=== PATIENT | male | born 1980 | race Caucasian/White ===

== ENCOUNTER 2017-09-25 19:16 | Inpatient (IN) | payer MEDICAID ==
[~2017-09-25] VITALS: Ht 167.6 cm; Wt 59.9 kg
[2017-09-25 19:18] VITALS: BP 124/79
--- NOTE | 2017-09-25 19:23 | NUR ---
PT TAKEN TO BED 11
--- NOTE | 2017-09-25 19:24 | NUR ---
37/M CAME IN ED, C/O 11/04 RLQ PAIN, NONRADIATING, X2 DAYS. PT REPORTS SLIGHT NAUSEA. PT REPORTS FEELING CONSTIPATED, VERY LITTLE LBM YESTERDAY. PT DENIES V/D OR DYSURIA, DENIES ANY FEVER, CP, SOB, OR COUGH AT THIS TIME; PATIENT POSITIONED FOR COMFORT; HOB ELEVATED; BEDRAILS UP X2; BED DOWN.
--- NOTE | 2017-09-25 20:55 | NUR ---
Patient being evaluated by Dr. Orozco at bedside.
[2017-09-25 21:11] LABS: BASOPHILS # (AUTO) 0.1 K/uL (0.00-0.22); BASOPHILS % (AUTO) 0.6 % (0.0-2.0); EOSINOPHILS # (AUTO) 0.7 K/uL (0-0.4); EOSINOPHILS % (AUTO) 6.6 % (0.0-4.0); HEMATOCRIT 42.6 % (36-52); HEMOGLOBIN 14.8 g/dL (12.0-18.0); MEAN CORPUSCULAR HEMOGLOBIN 32 pg (27-31); MEAN CORPUSCULAR HGB CONC 35 g/dL (33-37); MEAN CORPUSCULAR VOLUME 91.9 fL (80-94); MONOCYTES # (AUTO) 0.7 K/uL (0.8-1.0); MONOCYTES % (AUTO) 6.2 % (1.7-9.3); NEUTROPHILS # (AUTO) 6.6 K/uL (1.8-7.7); NEUTROPHILS % (AUTO) 59.6 % (42.2-75.2); PLATELET COUNT (AUTO) 193 K/uL (140-450); RED BLOOD CELL COUNT(AUTO) 4.64 MIL/uL (4.20-6.10); RED CELL DISTRIBUTION WIDTH 12.3 % (11.6-13.7)
[2017-09-25 21:13] LABS: APPEARANCE,URINE CLEAR (CLEAR); BILIRUBIN,URINE NEGATIVE (NEGATIVE); BLOOD, URINE NEGATIVE (NEGATIVE); COLOR,URINE YELLOW (YELLOW); LEUKOCYTE ESTERASE ,URINE NEGATIVE (NEGATIVE); NITRITE, URINE NEGATIVE (NEGATIVE); UGLUCOSE NEGATIVE (NEGATIVE)
--- NOTE | 2017-09-25 21:15 | NUR ---
PT TAKEN TO CT
[2017-09-25 21:19] LABS: ANION GAP 10.2 (8-16); CARBON DIOXIDE 29.2 mmol/L (21-32); POTASSIUM 4.4 mmol/L (3.5-5.1)
--- NOTE | 2017-09-25 21:24 | NUR ---
PT RETURN FROM CT
[2017-09-25 21:26] LABS: ALBUMIN 3.9 g/dL (3.4-5.0); TOTAL BILIRUBIN 0.6 mg/dL (0.0-1.0)
--- NOTE | 2017-09-25 21:28 | NUR ---
PT RESTING COMFORTABLY IN BED, PT REPORTS SAME PAIN 8/10 AT THIS TIME. VSS. ALL NEEDS MET AT THIS TIME.
[2017-09-25] MEDS ORDERED: LORazepam 2 MG/ML VIAL IM/IVP PRN (23:30)
[2017-09-25] MEDS ORDERED: DOCUSATE SODIUM 100 MG GELCAP PO PRN (23:30)
[2017-09-25] MEDS ORDERED: ZOLPIDEM 5 MG TAB PO PRN (23:30)
[2017-09-25] MEDS ORDERED: ACETAMINOPHEN 325 MG TAB PO PRN (23:30)
[2017-09-25] MEDS ORDERED: ceFAZolin 1,000 MG VIAL ONE (23:33)
[2017-09-25] MEDS: NACL 0.9% 1,000 ML IV SCH (23:39)
--- NOTE | 2017-09-25 23:40 | NUR ---
Dr. Hollis evaluating patient at bedside.
[2017-09-25 23:52] LABS: PROTHROMBIN TIME 11.2 secs (10.8-13.4)
[2017-09-25 23:52] LABS: BARBITURATE, URINE NEG. ng/ml (NEG <=200); BENZODIAZEPINE, URINE NEG. ng/mL (NEG <=200); CANNABINOID, URINE NEG. ng/mL (NEG <=50); COCAINE, URINE NEG. ng/mL (NEG <=300); OPIATE, URINE NEG. ng/mL (NEG <=2000); PHENCYCLIDINE SCREEN,URINE NEG. ng/mL (NEG <=25)
--- NOTE | 2017-09-26 00:03 | NUR ---
Patient will be admitted to care of DR. WORKMAN. Admited to TELE. Will go to room 119B. Belongings list completed. Report to [facility] AT BEDSIDE.
[2017-09-26 00:04] LABS: CHOL/HDL RATIO 3.7 (1-4.5); MAGNESIUM 1.8 mg/dL (1.8-2.4); PHOSPHORUS 3.6 mg/dL (2.5-4.9); THYROID STIMULATING HORMONE 1.85 uIU/mL (0.34-3.74)
--- NOTE | 2017-09-26 00:10 | NUR ---
ADMITTED THIS 37 YEAR OLD MALE FROM ER PER MICHELLE WITH CC OF RLQ ABDOMINAL PAIN, N/V AND CONSTIPATION, AMBULATED TO BED WITH STEADY GAIT, ASSESSMENT DONE, SPEAKS UZBEK AND SOME CHILEAN, VITAL SIGNS STABLE, PAIN 8/10 AT THIS TIME, WILL MEDICATE PRN, INSTRUCTED NPO EXCEPT MEDS, ORIENTED TO ROOM AND CALL LIGHT, PT INQUIRING WHEN THE SURGERY WILL BE DONE, MADE AWARE THAT SURGICAL CONSULT WAS ORDERED SO TO WAIT FOR THE DOCTOR TO SEE HIM TODAY, VERBALIZED UNDERSTANDING, CALL LIGHT WITHIN REACH.
[2017-09-26 00:20] VITALS: BP 117/67
[2017-09-26] MEDS: HYDROcodone/APAP 5/325 MG 1 TAB TAB PO PRN (00:27)
[2017-09-26] MEDS: metroNIDAZOLE 500 MG/NS PREMIX 100 ML IV SCH ×3 (00:59→16:15)
--- NOTE | 2017-09-26 03:38 | NUR ---
PT SLEEPING, EASILY AROUSABLE, VITAL SIGNS TAKEN, BP ON THE LOW SIDE BUT STABLE, SB ON TELE, DENIES PAIN AT THIS TIME, NO SOB NOTED, IVF INFUSING WELL, MAINTAINED ON NPO EXCEPT MEDS, MONITORED CLOSELY.
[2017-09-26 04:00] VITALS: BP 92/47
--- NOTE | 2017-09-26 06:17 | NUR ---
PT SLEEPING, NO SIGNS OF DISTRESS, NO SIGNS OF PAIN, IVF INFUSING WELL, MAINTAINED ON NPO, AWAITING SURGICAL CONSULT WITH DR GUILLORY, MONITORED CLOSELY.
[2017-09-26 06:48] LABS: BASOPHILS % (AUTO) 0.4 % (0.0-2.0); EOSINOPHILS # (AUTO) 0.5 K/uL (0-0.4); EOSINOPHILS % (AUTO) 6.5 % (0.0-4.0); LYMPHOCYTES # (AUTO) 2.6 K/uL (2.0-11.5); LYMPHOCYTES % (AUTO) 33.9 % (20.5-51.1); MEAN CORPUSCULAR HEMOGLOBIN 32 pg (27-31); MEAN CORPUSCULAR HGB CONC 35 g/dL (33-37); MEAN CORPUSCULAR VOLUME 92.2 fL (80-94); MONOCYTES # (AUTO) 0.6 K/uL (0.8-1.0); MONOCYTES % (AUTO) 7.6 % (1.7-9.3); NEUTROPHILS % (AUTO) 51.6 % (42.2-75.2); PLATELET COUNT (AUTO) 185 K/uL (140-450); RED BLOOD CELL COUNT(AUTO) 4.33 MIL/uL (4.20-6.10); RED CELL DISTRIBUTION WIDTH 12.7 % (11.6-13.7); WHITE BLOOD COUNT (AUTO) 7.7 K/uL (4.8-10.8)
--- NOTE | 2017-09-26 07:15 | NUR ---
PT AWAKE USING HIS CELLPHONE, NO SIGNS OF DISTRESS, REPORT GIVEN TO DILCIA LARSON FOR CONTINUITY OF CARE.
--- NOTE | 2017-09-26 07:20 | NUR ---
RECEIVED REPORT FROM [employer] BROADCASTING [employer] RN. PATIENT IS RESTING IN BED, WATCHING TV. DENIES PAIN. NO OTHER SIGNS OF DISTRESS. SKIN IS INTACT. LUNGS CTA IN ALL [place]. HEART RHYTHM IS REGULAR. PATIENT IS AMBULATORY. IV SITE IS PATENT AND ASYMPTOMATIC, RUNNING IVF PER MD ORDERS. DISCUSSED PLAN OF CARE WITH PATIENT. PATIENT VERBALIZED UNDERSTANDING. ALL SAFETY MEASURES ARE IN PLACE. WILL CONTINUE TO MONITOR.
[2017-09-26 07:23] LABS: ANION GAP 10.1 (8-16); POTASSIUM 4.1 mmol/L (3.5-5.1)
[2017-09-26 07:33] LABS: PHOSPHORUS 3.3 mg/dL (2.5-4.9)
[2017-09-26 08:00] VITALS: BP 102/64
[2017-09-26] MEDS: NACL 0.9% 1,000 ML IV SCH (09:19)
[2017-09-26] MEDS: LACTOBACILLUS RHAMNOSUS GG 1 EACH CAP PO SCH (09:19)
--- NOTE | 2017-09-26 09:28 | NUR ---
PATIENT HAS BEEN SCREENED AND CATEGORIZED MODERATE NUTRITION RISK. PATIENT WILL BE SEEN WITHIN 3-5 DAYS OF ADMISSION. 09/28/17 09/30/[address]
--- NOTE | 2017-09-26 10:00 | NUR ---
DR. BLANCO INSTRUCTED RN TO HOLD K DUR TABLETS AND ADMINISTER IV POTASSIUM CHLORIDE ONLY.
--- NOTE | 2017-09-26 10:15 | NUR ---
PATIENT IN STABLE CONDITION, READY TO GO TO OR FOR PROCEDURE. SURGICAL CONSENT IS SIGNED. PATIENT MADE AWARE THAT PROCEDURE WILL BE LAPAROSCOPIC APPENDECTOMY WITH POSSIBLE OPEN APPENDECTOMY. PATIENT VERBALIZES UNDERSTANDING OF PROCEDURE, WELL RISKS AND BENEFITS. WILL CONTINUE TO MONITOR.
[2017-09-26] MEDS ORDERED: BUPIVACAINE-MPF 0.5% 30 ML VIAL INJ ONE (10:44)
--- NOTE | 2017-09-26 10:45 | NUR ---
OR NURSES AT BEDSIDE READY TO TAKE PATIENT TO OR FOR S/P LAP APPENDECTOMY OR OPEN APPENDECTOMY. WILL CONTINUE TO MONITOR.
[2017-09-26] MEDS ORDERED: fentaNYL 0.05 MG/ML VIAL ONE (10:57)
[2017-09-26] MEDS ORDERED: MEPERIDINE 50 MG/ML SYR ONE (10:57)
[2017-09-26] MEDS ORDERED: MIDAZOLAM 2 MG/2 ML VIAL ONE (10:57)
[2017-09-26] MEDS ORDERED: DEXAMETHASONE 4 MG/ML VIAL IVP ONE (11:25)
[2017-09-26] MEDS ORDERED: KETOROLAC 30 MG/ML VIAL IVP ONE (11:25)
[2017-09-26] MEDS ORDERED: PROPOFOL 200 MG/20 ML VIAL IV ONE (11:25)
[2017-09-26] MEDS ORDERED: ONDANSETRON 4 MG/2 ML VIAL IVP ONE (11:25)
[2017-09-26] MEDS ORDERED: SUCCINYLCHOLINE CHLORIDE 200 MG/10 ML VIAL IV ONE (11:25)
[2017-09-26] MEDS ORDERED: GLYCOPYRROLATE 0.2 MG/ML VIAL IV ONE (11:25)
[2017-09-26] MEDS ORDERED: SEVOFLURANE 250 ML BTL INH ONE (11:25)
[2017-09-26] MEDS ORDERED: ROCURONIUM 50 MG/5 ML VIAL IV ONE (11:25)
[2017-09-26] MEDS ORDERED: PHENYLEPHRINE 10 MG/ML VIAL IV ONE (11:25)
[2017-09-26] MEDS ORDERED: LACTATED RINGERS 1,000 ML IV SCH (11:57)
[2017-09-26] MEDS ORDERED: MEPERIDINE 25 MG/ML SYR IVP PRN (12:00)
[2017-09-26] MEDS ORDERED: ONDANSETRON 4 MG/2 ML VIAL IVP PRN (12:00)
[2017-09-26] MEDS ORDERED: diphenhydrAMINE 50 MG/ML VIAL IVP PRN (12:00)
[2017-09-26] MEDS: HYDROmorphone 1 MG/ML AMP IVP PRN ×2 (13:15→13:25)
[2017-09-26] MEDS ORDERED: HYDROmorphone PFS 2 MG/ML SYR ONE (13:16)
[2017-09-26 13:45] VITALS: BP 105/57
--- NOTE | 2017-09-26 13:45 | NUR ---
RECEIVED PATIENT BACK FROM OR. PATIENT IS IN STABLE CONDITION. STATES THAT PAIN IS TOLERABLE AT THIS TIME. WILL CONTINUE TO MONITOR.
[2017-09-26] MEDS: DEXT 5% / NACL 0.45% 1,000 ML IV SCH ×2 (13:50→22:30)
[2017-09-26 16:00] VITALS: BP 104/56
--- NOTE | 2017-09-26 16:15 | NUR ---
SCHEDULED ANTIBIOTIC ADMINISTERED AT THIS TIME. PATIENT IS SLEEPING IN BED, AROUSABLE BY VOICE. STATES THAT PAIN IS TOLERABLE AT THIS TIME. DENIES NAUSEA AND VOMITING. VITAL SIGNS ARE STABLE. WILL CONTINUE TO MONITOR.
[2017-09-26] MEDS: MORPHINE SULFATE 2 MG/ML SYR IVP PRN ×2 (17:16→21:55)
[2017-09-26] MEDS: ONDANSETRON 4 MG/2 ML VIAL IM/IVP PRN (18:16)
--- NOTE | 2017-09-26 18:16 | NUR ---
PATIENT HAD ONE EPISODE OF SMALL AMOUNT OF VOMITUS. ZOFRAN IVP GIVEN AT THIS TIME.
--- NOTE | 2017-09-26 18:26 | NUR ---
PATIENT HAD ONE EPISODE OF SMALL VOMIT WHEN EATING A LITTLE BIT OF DINNER. ZOFRAN GIVEN PER MD ORDERS. SAFETY MEASURES IN PLACE, CALL LIGHT WITHIN REACH. WILL CONTINUE TO MONITOR. Addendum: 09/26/17 at 1857 by Ronny Crowley RN PLEASE DISREGARD NOTE. DUPLICATE FROM EARLIER NOTE FROM DAVE.
--- NOTE | 2017-09-26 19:16 | NUR ---
PATIENT NO LONGER COMPLAINS OF NAUSEA AFTER ZOFRAN GIVEN. NO FURTHER EPISODES OF VOMITING. WILL CONTINUE TO MONITOR.
--- NOTE | 2017-09-26 19:20 | NUR ---
ENDORSED PLAN OF CARE TO ALLIED HEALTH INSTRUCTOR RN. PATIENT IS IN STABLE CONDITION.
--- NOTE | 2017-09-26 19:25 | NUR ---
RECEIVED REPORT FROM [facility] NURSE LARSON AT BEDSIDE FOR CONTINUITY OF CARE. PT AAOX4 UZBEK SPEAKING. PT HAS NO SOB NO S/S OF DISTRESS ON RA. IV NOTED LFA 18G D5 0.45% NS RUNNING 100 ML/HR. PT IS POST OP LAP API. DIET CLEAR LIQUID. BED LOWERED. CALL LIGHT WITHIN REACH WILL CONTINUE TO MONITOR.
[2017-09-26 20:00] VITALS: BP 107/59
[2017-09-26] MEDS: SIMETHICONE 80 MG TAB.CHEW PO PRN (21:55)
--- NOTE | 2017-09-26 22:00 | NUR ---
GAVE PT MORPHINE 1MG. EDUCATED ON MAYBE TRYING A NORCO NEXXT TIME. ALSO GOT ABD BINDER PER PT REQUEST. GAVE ANTI GAS BLOATING MED. WILL CONTINUE TO MONITOR.
--- NOTE | 2017-09-27 01:00 | NUR ---
PT ABLE TO URINATE, AFTER SURGERY WILL CONTINUE TO MONITOR.
[2017-09-27] MEDS: metroNIDAZOLE 500 MG/NS PREMIX 100 ML IV SCH ×3 (01:25→17:11)
[2017-09-27] MEDS: HYDROcodone/APAP 5/325 MG 1 TAB TAB PO PRN ×4 (01:33→21:02)
[2017-09-27 06:22] LABS: T4 (THYROXINE) 6.9 ug/dL (4.5-12.0)
[2017-09-27 06:44] LABS: BASOPHILS % (AUTO) 0.1 % (0.0-2.0); EOSINOPHILS % (AUTO) 0.1 % (0.0-4.0); HEMATOCRIT 37.1 % (36-52); HEMOGLOBIN 12.8 g/dL (12.0-18.0); LYMPHOCYTES # (AUTO) 1.9 K/uL (2.0-11.5); LYMPHOCYTES % (AUTO) 18.4 % (20.5-51.1); MEAN CORPUSCULAR HEMOGLOBIN 32 pg (27-31); MEAN CORPUSCULAR HGB CONC 35 g/dL (33-37); MEAN CORPUSCULAR VOLUME 92.5 fL (80-94); MONOCYTES # (AUTO) 0.8 K/uL (0.8-1.0); MONOCYTES % (AUTO) 7.9 % (1.7-9.3); NEUTROPHILS # (AUTO) 7.6 K/uL (1.8-7.7); NEUTROPHILS % (AUTO) 73.5 % (42.2-75.2); PLATELET COUNT (AUTO) 192 K/uL (140-450); RED BLOOD CELL COUNT(AUTO) 4.01 MIL/uL (4.20-6.10); RED CELL DISTRIBUTION WIDTH 12.4 % (11.6-13.7); WHITE BLOOD COUNT (AUTO) 10.3 K/uL (4.8-10.8)
--- NOTE | 2017-09-27 07:07 | NUR ---
PT SLEEPING NO SOB NO S/S OF DISTRESS. WILL CONTINUE TO MONITOR.
[2017-09-27 07:09] LABS: ANION GAP 9.9 (8-16); POTASSIUM 3.9 mmol/L (3.5-5.1)
--- NOTE | 2017-09-27 07:30 | NUR ---
ENDORSED REPORT TO DAYSHIFT NURSE AT BEDSIDE FOR CONTINUITY OF CARE.
[2017-09-27 08:00] VITALS: BP 107/61
[2017-09-27] MEDS: DEXT 5% / NACL 0.45% 1,000 ML IV SCH ×2 (08:30→17:17)
[2017-09-27] MEDS: LACTOBACILLUS RHAMNOSUS GG 1 EACH CAP PO SCH (08:51)
--- NOTE | 2017-09-27 10:10 | NUR ---
PT ASSISTED TO RESTROOM. ASKED IF WANNA USE URINAL, PT PREFERS THE RESTROOM. PT TOLERATED WELL. ADMINISTERED ROCEPHIN ORDERED, FLAGYL WAS INFUSING BEFORE. PT STATES PAIN LEVEL IS TOLERABLE, 5/10. BED AT LOW POSITION. ASKED PT TO USEE CALL BUTTON IF NEEDS ANT HELP. VERBALIZED UNDERSTANDING.WILL CONTINUE TO MONITOR PT.
[2017-09-27] MEDS: MORPHINE SULFATE 2 MG/ML SYR IVP PRN (10:55)
--- NOTE | 2017-09-27 13:00 | NUR ---
CHECKED ON PT. PT WITH FAMILY MEMBER, STATES PAIN AT THE TOLERABLE LEVEL. ALL THE SAFETY MEASURE IN PLACE. WILL CONTINUE TO MONITOR PT.
--- NOTE | 2017-09-27 14:20 | NUR ---
INSTRUCTED PT TO USE THE INCENTIVE SPIROMETER. DEMONSTRATED HOW TO PERFORM IT. PT DID RETURN DEMONSTRATION. INSTRUCTED TO TAKE DEEP BREATHE IN AND BLOW SLOWLY 10 X EVERY 10 MIN. VERBALIZED UNDERSTANDING OF TEACHING. WILL CONTINUE TO MONITOR PT.
--- NOTE | 2017-09-27 15:25 | NUR ---
CHECKED ON PT. LYING ON BED, DOING IS INSTRUCTED. COMPLAINED OF PAIN ON LUQ 7/10. MEDICATED WITH PAIN MED. INSTRUCTED TO PRACTICE IS TOLERATED. VERBALIZED UNDERSTANDING OF TEACHING.FAMILY AT BEDSIDE. WILL CONTINUE TO MONITOR PT.
[2017-09-27 16:00] VITALS: BP 105/56
--- NOTE | 2017-09-27 16:12 | NUR ---
INFORMED DOCTOR ABOUT PT COMPLAINING OF PAIN 10/04 AFTER GIVING NORCO TOO. NO ITGHER MEDS FOR PAIN . DOC TO ORDER MORPHINE. WILL MEDICATE PT ORDERED.
[2017-09-27] MEDS ORDERED: MORPHINE SULFATE 2 MG/ML SYR IVP PRN (16:15)
--- NOTE | 2017-09-27 19:10 | NUR ---
PT ENDORSED TO PM NURSE. PT STABLE AT THIS TIME.
--- NOTE | 2017-09-27 19:11 | NUR ---
RECD. RESTING IN BED, AWAKE, A/OX4. RESPIRATION EVEN AND UNLABORED. IV OF NS AT 100 ML/HR INFUSING LEFT FOREARM G18. S/P LAP AP, INCISION IN THE ABDOMEN (3) WITH GLUED, ALL DRY AND INTACT. TOLERATING DIET, AMBULATED TO BR. KNOW HOW TO USE INCENTIVE SPIROMETER. NOT YET PASSING GAS AND NO BM YET, ADVISED TO AMBULATE MORE. 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 PATIENT VERBALIZED UNDERSTANDING. PAIN 1/10, STATED TOLERABLE.
--- NOTE | 2017-09-27 19:11 | NUR ---
Patient's Plan of Care was discussed and reviewed with CANCELING AND CUTTING CONTROL CLERK: MATT BOYD
[2017-09-27] MEDS: SIMETHICONE 80 MG TAB.CHEW PO PRN (21:02)
--- NOTE | 2017-09-27 21:02 | NUR ---
UNABLE TO PASSED GAS, MEDICATED WITH MYLICON ORDERED. ENCOURAGE TO AMBULATE MORE.
--- NOTE | 2017-09-27 22:00 | NUR ---
SLEEPING COMFORTABLY IN BED.
[2017-09-28] VITALS: BP 101/57
[2017-09-28] MEDS: metroNIDAZOLE 500 MG/NS PREMIX 100 ML IV SCH ×2 (00:55→09:34)
--- NOTE | 2017-09-28 01:00 | NUR ---
APPLIED BILATERAL LEG SEQUENTIALS.
[2017-09-28] MEDS: HYDROcodone/APAP 5/325 MG 1 TAB TAB PO PRN ×3 (01:20→13:19)
--- NOTE | 2017-09-28 04:56 | NUR ---
MEDICATED WITH ZOFRAN 4 MG. IVP BY DILCIA ANDRE.
--- NOTE | 2017-09-28 05:00 | NUR ---
ASSISTED OUT OF BED TO VOID IN THE BR. FEELS DIZZY AND NAUSEATED UPON RETURNING TO BED.
[2017-09-28] MEDS: DEXT 5% / NACL 0.45% 1,000 ML IV SCH (05:10)
--- NOTE | 2017-09-28 05:26 | NUR ---
NO N/V NOTED. RESTING COMFORTABLY IN BED.
[2017-09-28] MEDS: ONDANSETRON 4 MG/2 ML VIAL IM/IVP PRN (05:46)
[2017-09-28 06:22] LABS: BASOPHILS % (AUTO) 0.3 % (0.0-2.0); EOSINOPHILS # (AUTO) 0.4 K/uL (0-0.4); EOSINOPHILS % (AUTO) 6.6 % (0.0-4.0); HEMATOCRIT 37.4 % (36-52); HEMOGLOBIN 12.9 g/dL (12.0-18.0); LYMPHOCYTES # (AUTO) 2.7 K/uL (2.0-11.5); LYMPHOCYTES % (AUTO) 43.3 % (20.5-51.1); MEAN CORPUSCULAR HEMOGLOBIN 32 pg (27-31); MEAN CORPUSCULAR HGB CONC 34 g/dL (33-37); MEAN CORPUSCULAR VOLUME 93.2 fL (80-94); MONOCYTES # (AUTO) 0.5 K/uL (0.8-1.0); MONOCYTES % (AUTO) 7.7 % (1.7-9.3); NEUTROPHILS # (AUTO) 2.7 K/uL (1.8-7.7); NEUTROPHILS % (AUTO) 42.1 % (42.2-75.2); PLATELET COUNT (AUTO) 192 K/uL (140-450); RED BLOOD CELL COUNT(AUTO) 4.01 MIL/uL (4.20-6.10); RED CELL DISTRIBUTION WIDTH 12.5 % (11.6-13.7); WHITE BLOOD COUNT (AUTO) 6.3 K/uL (4.8-10.8)
[2017-09-28 06:58] LABS: CARBON DIOXIDE 28.7 mmol/L (21-32); POTASSIUM 3.7 mmol/L (3.5-5.1)
[2017-09-28 07:13] LABS: MAGNESIUM 1.7 mg/dL (1.8-2.4); PHOSPHORUS 3.6 mg/dL (2.5-4.9)
[2017-09-28] MEDS ORDERED: MECLIZINE 25 MG TAB PO PRN (07:20)
--- NOTE | 2017-09-28 07:25 | NUR ---
CONDITION REMAIN STABLE. ALL NEEDS ATTENDED. ENDORSED TO AM NURSE FOR CONTINUITY OF CARE.
--- NOTE | 2017-09-28 07:26 | NUR ---
RECEIVED BEDSIDE REPORT FROM TECHNOLOGY CONSULTANT NURSE. PATIENT IS AWAKE, ALERT AND ORIENTED X4. NO COMPLAINTS AT THIS TIME. NO SIGNS OF DISTRESS ON ROOM AIR. FAMILY AT BEDSIDE. AMBULATED AROUND THE EASON, STEADY. S/P LAP APPY, GLUED, CLEAN, DRY INTACT 3 INCISIONS. L FA 18 INFUSING D5/NS .45. AT 100. IV IS CLEAN, DRY AND INTACT. BED IN LOW POSITION. CALL LIGHT WITHIN REACH. WILL CONTINUE TO MONITOR THE PATIENT.
[2017-09-28 08:00] VITALS: BP 107/63
[2017-09-28] MEDS ORDERED: SIMETHICONE 80 MG TAB.CHEW PO SCH (09:00)
[2017-09-28] MEDS: LACTOBACILLUS RHAMNOSUS GG 1 EACH CAP PO SCH (09:34)
--- NOTE | 2017-09-28 09:44 | NUR ---
ADMINISTERED MEDS. PATIENT TOLERATED WELL. IV IS CLEAN, DRY AND INTACT. WILL CONTINUE TO MONITOR THE PATIENT
--- NOTE | 2017-09-28 11:00 | NUR ---
PATIENT IS SLEEPING. NO SIGNS OF DISTRESS ON ROOM AIR. WILL CONTINUE TO MONITOR THE PATIENT
[2017-09-28] MEDS ORDERED: ACET-2869 PO (12:36)
[2017-09-28] MEDS ORDERED: DOCU-300 PO (12:36)
[2017-09-28] MEDS ORDERED: MAGNESIUM OXIDE 400 MG TAB PO SCH (13:00)
--- NOTE | 2017-09-28 13:26 | NUR ---
ADMINISTERED MEDS AND PRN PAIN MED. PATIENT TOLERATED WELL. PATIENT COMPLAINS OF PAIN AFTER AMBULATING. WILL WORK ON DC PAPERWORK AND CONTINUE TO MONITOR THE PATIENT.,
--- NOTE | 2017-09-28 14:50 | NUR ---
EDUCATED PATIENT ON DISEASE, ABN S/SX, WHEN TO GO TO THE NEAREST ER, EDUCATED ON MEDS, GAVE PRESCRIPTION, EDUCATED ON WOUND CARE, TO FOLLOW UP WITH SURGEON, GAVE DRS EXCUSE NOTE FROM WORK, EDUCATED ON HOW NOT TO LIFT HEAVY THINGS. PATIENT AND VERBALIZED UNDERSTANDING, PADMAJA MURCIA, HELPED TRANSLATE. PATIENT SIGNED ALL DISCHARGE PAPER WORK. ID BANDS REMOVED. IV REMOVED, IV TIP IS INTACT. PATIENT LEFT IN WHEELCHAIR IN STABLE CONDITION WITH .
== END 2017-09-28 14:50 | disposition home or self-care (01) | DRG 234 ==
LOC: MED 19:16 → MTU 23:34
PROVIDERS: ADMIT General Practice; ATTEND General Practice
PROC: 0DTJ4ZZ Resection of Appendix, Percutaneous Endoscopic Approach (ICD-10-PCS; principal; 2017-09-26 10:30)
DX: K35.80 Unspecified acute appendicitis (principal); E83.42 Hypomagnesemia; F14.10 Cocaine abuse, uncomplicated
CPT/HCPCS: 36415; 71045; 80048; 80053; 80305; 81003; 82150; 82374; 83036; 83690; 83735; 84100; 84436; 84443; 84479; 84484; 85025; 85610; 85730; 86886; 86900; 86901; 87081; 88304; 96365; 99285; J0330; J0690; J0696; J1100; J1170; J1644; J1885; J2175; J2250; J2270; J2370; J2405; J2704; J3010; J3490; J7030; J7042; J7060; Q0092

== ENCOUNTER 2017-10-01 17:54 | Emergency (ER) | payer MEDICAID ==
[~2017-10-01] VITALS: Ht 165.1 cm; Wt 58.2 kg
[~2017-10-01 17:54] MED LIST: ACET-2869 PO; DOCU-300 PO
[2017-10-01 18:00] VITALS: BP 112/73
--- NOTE | 2017-10-01 18:04 | NUR ---
PT AMBULATES TO BED 10, REPORT GIVEN TO DILCIA COTTRELL
--- NOTE | 2017-10-01 18:44 | NUR ---
PATIENT PRESENTS TO ED WITH LOWER ABDOMINAL INTERMITTENT CRAMPING PAIN X 3 DAYS . PT STATES . DENIES N/V/D; SKIN IS PINK/WARM/DRY; AAOX4 WITH EVEN AND STEADY GAIT; LUNGS CLEAR BL; HR EVEN AND REGULAR; PT DENIES ANY FEVER, CP, SOB, OR COUGH AT THIS TIME; PATIENT STATES PAIN OF 10/10 AT THIS TIME; VSS; PATIENT POSITIONED FOR COMFORT; HOB ELEVATED; BEDRAILS UP X2; BED DOWN. ER MD MADE AWARE OF PT STATUS.
[2017-10-01 19:52] VITALS: BP 105/67
== END 2017-10-01 19:49 | disposition home or self-care (01) ==
LOC: MED 17:54
DX: K59.00 Constipation, unspecified (principal); Z79.899 Other long term (current) drug therapy; Z90.89 Acquired absence of other organs
CPT/HCPCS: 74018; 99283; Q0092